=== PATIENT | male | born 1940 ===

== ENCOUNTER 2016-09-25 00:15 | Emergency (ER) | payer MEDICARE ==
[2016-09-25 00:15] VITALS: BMI 38.3
[2016-09-25] MEDS ORDERED: Sodium Chloride 0.9% 1,000 ML IV STA (02:19)
[2016-09-25] MEDS ORDERED: Insulin Regular 100 units/ml IVP STA (02:20)
[2016-09-25 02:21] LABS: BASO # 0.1 K/uL (0.0-0.2); BASO % 0.7 % (0.0-2.0); EOS # 0.3 K/uL (0.0-0.7); EOS % 3.3 % (0.0-4.0); HEMATOCRIT 47.3 % (35.0-51.0); LYMPH # 1.2 K/uL (1.0-4.3); LYMPH % 14.6 % (20.0-40.0); MEAN CELL VOLUME 87.2 fl (80.0-94.0); MEAN CORPUSCULAR HEMOGLOBIN 28.8 pg (27.0-31.0); MEAN PLATELET VOLUME 9.3 fl (7.2-11.7); NEUT # 5.8 K/uL (1.8-7.0); NEUT % 69.4 % (50.0-75.0); NRBC % 0.2 % (0.0-0.0); RED CELL DISTRIBUTION WIDTH 14.5 % (11.5-14.5); WHITE BLOOD COUNT 8.4 K/uL (4.8-10.8)
[2016-09-25 02:27] LABS: CHLORIDE 100 mmol/L (98-107); POTASSIUM 5.1 MMOL/L (3.6-5.0); SODIUM 140 mmol/l (132-148)
[2016-09-25 02:30] LABS: ALB/GLOB RATIO 1.2 (1.0-2.1); ALKALINE PHOSPHATASE 101 U/L (38-126); ALT/SGPT 22 U/L (21-72); AST/SGOT 21 U/L (17-59); BILIRUBIN,TOTAL 0.6 mg/dl (0.2-1.3); BLOOD UREA NITROGEN 18 mg/dl (9-20); CALCIUM 10.7 mg/dL (8.4-10.2); CARBON DIOXIDE 30 mmol/L (22-30); GFR AFRICAN-AMERICAN > 60; GLUCOSE,RANDOM 382 mg/dL (75-110); TOTAL PROTEIN 7.5 G/DL (6.3-8.2)
--- NOTE | 2016-09-25 03:06 | ED PDOC ---
HPI: Psych/Substance Abuse Time Seen by Provider: 09/25/16 01:32 Chief Complaint (Nursing): Psychiatric Evaluation Chief Complaint (Provider): Psych eval History Per: Patient History/Exam Limitations: no limitations Onset/Duration Of Symptoms: Days Current Symptoms Are (Timing): Still Present Suicide/Self Injury Attempted (Context): None Associated Symptoms: Other (unable to sleep). denies: Suicidal Thoughts, Suicidal Plan Involuntary Hold By: None Additional History Per: Patient Additional Complaint(s): The pt is a 76yo male, presents to the ED for evaluation of sleeplessness which has worsened over the past 9 days. Pt reports for the past 3 years, whenever he has to sleep, he has difficulty due to being scared that he will . Pt reports his three years ago and further states he is usually able to control such feelings by attempting to go to sleep but states over past 9 days, has had increased difficulty sleeping as his son was recently diagnosed with a brain tumor. Pt denies any chest pain, SOB, palpitations, abdominal pain , fever or weakness. Pt also denies any suicidal or homicidal ideation. At present, he offers no additional medical complaints. PMD: None provided Past Medical History Reviewed: Historical Data, Nursing Documentation, Vital Signs Vital Signs: Last Vital Signs Temp 98.6 F 09/25/16 00:22 Pulse 98 H 09/25/16 00:22 Resp 18 09/25/16 00:22 BP 153/90 H 09/25/16 00:22 Pulse Ox 100 09/25/16 00:22 - Medical History PMH: Anxiety, Depression, Diabetes (type II), HTN, Hyperlipidemia Denies: Hepatitis, HIV, Chronic Kidney Disease, Seizures, Sexually Transmitted Disease - Surgical History Surgical History: Appendectomy, Cholecystectomy, Coronary Stent - Family History Family History: States: Unknown Family Hx - Immunization History Hx Tetanus Toxoid Vaccination: No - Home Medications Home Medications: Ambulatory Orders Medication Instructions Recorded Aspirin [Aspirin Chewable] 81 mg PO DAILY #0 chew 03/16/16 Clopidogrel [Plavix] 75 mg PO DAILY #0 tab 03/16/16 Docusate [Colace] 100 mg PO TID #0 cap 03/16/16 Insulin Detemir [Levemir] 40 unit SC HS #0 unit 03/16/16 Isosorbide Mononitrate [Imdur] 30 mg PO DAILY #0 tab 03/16/16 LORazepam [Ativan] 0.5 mg PO HS PRN #0 tab 03/16/16 Losartan [Cozaar] 100 mg PO DAILY #0 tab 03/16/16 Mirtazapine [Remeron] 7.5 mg PO HS #0 tab 03/16/16 PARoxetine [Paxil] 40 mg PO HS #0 tab 03/16/16 Simvastatin [Zocor] 40 mg PO DAILY #0 tablet 03/16/16 Vitamin D2 50,000 unit PO QD7 #0 03/16/16 traZODone [Desyrel] 25 mg PO HS PRN #7 tab 09/20/16 - Allergies Allergies/Adverse Reactions: Allergies Allergy/AdvReac Type Severity Reaction Status Date / Time No Known Allergies Allergy Verified 09/25/16 00:22 Review of Systems ROS Statement: Except As Marked, All Systems Reviewed And Found Negative Constitutional: Negative for: Fever Cardiovascular: Negative for: Chest Pain, Palpitations Respiratory: Negative for: Shortness of Breath Gastrointestinal: Negative for: Abdominal Pain Neurological: Negative for: Weakness Psych: Negative for: Suicidal ideation, Other (hallucinations) Physical Exam - Reviewed Nursing Documentation Reviewed: Yes Vital Signs Reviewed: Yes - Physical Exam Appears: Positive for: Well, Non-toxic, No Acute Distress Head Exam: Positive for: ATRAUMATIC, NORMAL INSPECTION, NORMOCEPHALIC Skin: Positive for: Normal Color, Warm, DRY Eye Exam: Positive for: EOMI, Normal appearance, PERRL Neck: Positive for: Normal, Supple Cardiovascular/Chest: Positive for: Regular Rate, Rhythm Respiratory: Positive for: Normal Breath Sounds. Negative for: Respiratory Distress Gastrointestinal/Abdominal: Positive for: Normal Exam Back: Positive for: Normal Inspection Extremity: Positive for: Normal ROM Neurologic/Psych: Positive for: Alert, Oriented, Mood/Affect (happy, friendly) - Laboratory Results Result Diagrams: 09/25/16 02:14 09/25/16 02:14 - ECG O2 Sat by Pulse Oximetry: 100 (RA) Pulse Ox Interpretation: Normal - Progress ED Course And Treament: EKG: SR 76 bpm with secondary AV block mobitz type (unchanged from EKG on 02/2016 ). Re-evaluation Time: 04:08 (Sleeping comfortably and in no distress. Repeat FS: 311) Condition: Re-examined Medical Decision Making Medical Decision Making: Time: 0150 Impression: Crisis evaluation Plan: -- Insulin 4 units IVP -- IV Fluids -- CXR -- Drug Screen -- Crisis evaluation --Reassess Scribe Attestation: Documented by Renae Reyes acting as a scribe for [id number] Steele Provider Scribe Attestation: All medical record entries made by the Scribe were at my direction and personally dictated by me. I have reviewed the chart and agree that the record accurately reflects my personal performance of the history, physical exam, medical decision making, and the department course for this patient. I have also personally directed, reviewed, and agree with the discharge instructions and disposition. Disposition - Clinical Impression Clinical Impression: Anxiety - Patient ED Disposition Is Patient to be Admitted: No - Disposition Disposition: Routine/Home Disposition Time: 04:07 Condition: STABLE Additional Instructions: TAKE YOUR MEDICATIONS Instructions: Anxiety (ED)
[2016-09-25 03:31] LABS: RBC URINE 1 /hpf (0-3); URINE BILIRUBIN NEGATIVE (NEGATIVE); URINE BLOOD NEGATIVE (NEGATIVE); URINE COLOR YELLOW (YELLOW); URINE GLUCOSE (UA) >=500 mg/dL (Normal); URINE KETONE TRACE mg/dL (NEGATIVE); URINE LEUKOCYTE ESTERASE NEG Leu/uL (Negative); URINE PROTEIN 100 mg/dL (NEGATIVE); URINE UROBILINOGEN 0.2-1.0 mg/dL (0.2-1.0); WBC URINE < 1 /hpf (0-5)
[2016-09-25 04:27] VITALS: BP 135/80; PULSE 85; RESP 16; TEMP 97.9; O2SAT 99
--- NOTE | 2016-09-25 12:02 | RAD ---
HISTORY: clearance COMPARISON: 09/19/2016 TECHNIQUE: Chest PA and lateral FINDINGS: LUNGS: No active pulmonary disease. PLEURA: No significant pleural effusion identified. No pneumothorax apparent. CARDIOVASCULAR: Normal. OSSEOUS STRUCTURES: No significant abnormalities. VISUALIZED UPPER ABDOMEN: Normal. OTHER FINDINGS: None. IMPRESSION: No active disease.
--- NOTE | 2016-09-25 19:48 | CARD ---
APPROVED REPORT EKG Measurement Heart [id number] <Conclusion> NSR Low voltage QRS Cannot rule out Anteroseptal infarct, age undetermined Abnormal ECG
== END 2016-09-25 05:47 | disposition home or self-care (01) ==
LOC: H.ER 00:15
DX: F41.9 Anxiety disorder, unspecified (principal); E11.9 Type 2 diabetes mellitus without complications; I10 Essential (primary) hypertension; Z79.82 Long term (current) use of aspirin; Z79.4 Long term (current) use of insulin; Z86.59 Personal history of other mental and behavioral disorders; Z00.8 Encounter for other general examination
CPT/HCPCS: 71020; 80053; 81003; 85025; 93005; 96361; 96374; 99283; G0480; J7040